=== PATIENT | female | born 1990 ===

== ENCOUNTER 2021-05-28 00:10 | Inpatient (IN) | payer SELFPAY ==
[2021-05-28] MEDS ORDERED: Azithromycin 500 MG in Sodium Chloride 0.9% 250 ML IV ONE (01:13)
[2021-05-28] MEDS ORDERED: Citric Acid/Sodium Citrate Solution 30 ML Cup PO ONE (01:13)
[2021-05-28] MEDS ORDERED: Metoclopramide 10 MG/2 ML SDV IVPUSH ONE (01:13)
[2021-05-28] MEDS ORDERED: ceFAZolin 2 GM in Sodium Chloride 0.9% 50 ML IV ONE (01:13)
[2021-05-28] MEDS ORDERED: Sodium Chloride 0.9% 10 ML Syringe FLUSH PRN (01:13)
[2021-05-28] MEDS ORDERED: Oxytocin/Lactated Ringers 10 UNIT/1,000 ML BAG IV SCH (01:15)
[2021-05-28] MEDS: Lactated Ringers 1,000 ML IV SCH ×2 (01:37→01:42)
[2021-05-28] MEDS ORDERED: Bupivacaine 0.5% 30 ML SDV ONE (02:02)
[2021-05-28] MEDS ORDERED: Morphine PF 10 MG/10 ML SDV ONE (02:08)
[2021-05-28] MEDS ORDERED: ceFAZolin 1 GM Vial ONE ×2 (02:09→02:53)
[2021-05-28] MEDS ORDERED: Oxytocin 10 Units/1 ML SDV ONE (03:18)
[2021-05-28] MEDS ORDERED: diphenhydrAMINE 50 MG/ML SDV ONE (03:29)
[2021-05-28] MEDS ORDERED: Ondansetron 4 MG/2 ML SDV ONE (03:37)
[2021-05-28] MEDS ORDERED: Meperidine 50 MG/ML Vial IVPUSH PRN (03:49)
[2021-05-28] MEDS ORDERED: diphenhydrAMINE 50 MG/ML SDV IVPUSH PRN ×2 (03:49→04:49)
[2021-05-28] MEDS ORDERED: fentaNYL 100 MCG/2 ML SDV IVPUSH PRN (03:49)
[2021-05-28] MEDS ORDERED: Ondansetron 4 MG/2 ML SDV IVPUSH PRN (03:49)
[2021-05-28] MEDS ORDERED: Dextrose 5%-Lactated Ringers 1,000 ML IV SCH (04:49)
[2021-05-28] MEDS ORDERED: Naloxone 0.4 MG/ML SDV IVPUSH PRN (04:49)
[2021-05-28] MEDS ORDERED: ePHEDrine 50 MG/ML SDV IVPUSH PRN (04:49)
[2021-05-28] MEDS ORDERED: Acetaminophen/oxyCODONE 325-5 MG Tab PO PRN (04:49)
[2021-05-28] MEDS: Ketorolac 30 MG/ML SDV IVPUSH SCH ×3 (05:53→19:29)
[2021-05-28] MEDS ORDERED: Sodium Chloride 0.9% 10 ML Syringe FLUSH SCH (09:00)
[2021-05-28] MEDS: Acetaminophen/oxyCODONE 325-5 MG Tab PO PRN (17:15)
[2021-05-28] MEDS ORDERED: Ketorolac 30 MG/ML SDV ONE (19:20)
[2021-05-29] MEDS: Ibuprofen 600 MG Tab PO PRN ×3 (03:19→20:47)
[2021-05-29] MEDS: Acetaminophen/oxyCODONE 325-5 MG Tab PO PRN ×3 (03:19→17:54)
[2021-05-29] MEDS: Simethicone 80 MG Tab.Chew PO SCH ×2 (17:54→21:39)
[2021-05-29] MEDS ORDERED: Docusate Sodium 100 MG Cap PO PRN (19:52)
[2021-05-30] MEDS: Acetaminophen/oxyCODONE 325-5 MG Tab PO PRN ×2 (01:08→06:51)
[2021-05-30] MEDS: Simethicone 80 MG Tab.Chew PO SCH (06:51)
[2021-05-30] MEDS: Ibuprofen 600 MG Tab PO PRN (09:22)
== END 2021-05-30 10:45 | disposition home or self-care (01) | DRG 788 ==
LOC: JD.OBCHECK 00:10 → JD.OB 00:16 → JD.OBCHECK 00:33 → JD.OB 00:33
PROVIDERS: ADMIT Obstetrics & Gynecology; ATTEND Obstetrics & Gynecology
PROC: 10D00Z1 Extraction of Products of Conception, Low, Open Approach (ICD-10-PCS; principal; 2021-05-28)
DX: O34.211 Maternal care for low transverse scar from previous cesarean delivery (principal); Z3A.39 39 weeks gestation of pregnancy; Z37.0 Single live birth; O77.0 Labor and delivery complicated by meconium in amniotic fluid
CPT/HCPCS: 01961; 36415; 59025; 85025; 86592; 86850; 86900; 86901; A9270-GY; J0456; J0690; J1200; J1885; J2274; J2405; J2590; J2765; J3490; J7050; J7120; J7121